=== PATIENT | male | born 1955 | race Caucasian/White ===

== ENCOUNTER 2018-07-01 15:01 | Observation (INO) | payer MEDICARE, BC ==
[2018-07-01 16:21] LABS: ADD MAN DIFF? NO
[2018-07-01 16:22] LABS: WHITE BLOOD COUNT 7.4 10^3/ul (4.8-10.8)
[2018-07-01 16:23] LABS: BASOPHILS % 0.3 % (0.0-2.0); EOSINOPHILS # 0.1 10^3/ul (0.0-0.5); EOSINOPHILS % 1.6 % (0.0-7.0); HEMATOCRIT 37.6 % (42.0-52.0); HEMOGLOBIN 12.4 g/dl (14.0-18.0); LYMPHOCYTES # 2.6 10^3/ul (0.8-2.9); MEAN CORPUSCULAR HEMOGLOBIN 29.3 pg (29.0-33.0); MEAN CORPUSCULAR VOLUME 88.9 fl (82.0-101.0); MEAN PLATELET VOLUME 10.6 fl (7.4-10.4); MONOCYTE # 0.5 10^3/ul (0.3-0.9); NEUTROPHIL # 4.1 10^3/ul (1.6-7.5); PLATELET COUNT 188 10^3/UL (140-415); RED BLOOD COUNT 4.23 10^6/ul (4.70-6.10); RED CELL DISTRIBUTION WIDTH 13.1 % (11.5-14.5)
[2018-07-01] MEDS: NITROGLYCERIN 2% 1 GM OINT PKT TD (16:35)
[2018-07-01] MEDS: ASPIRIN 81 MG TAB PO (16:36)
[2018-07-01 16:42] LABS: ANION GAP 8 (5-13); BLOOD UREA NITROGEN 26 mg/dl (7-20); CALCIUM 9.4 mg/dl (8.4-10.2); CARBON DIOXIDE 24 mmol/L (21-31); CHLORIDE 108 mmol/L (97-110); Estimated GFR 56 mL/min (>60); GLUCOSE 79 mg/dl (70-220); POTASSIUM 4.3 mmol/L (3.5-5.1); SODIUM 140 mmol/L (135-144)
[2018-07-01 16:53] LABS: TROPONIN-I < 0.012 ng/ml (0.000-0.120)
[2018-07-01] MEDS ORDERED: DOCUSATE SODIUM 100 MG CAP PO (18:00)
[2018-07-01] MEDS ORDERED: MAGNESIUM HYDROXIDE 30ML CUP PO (18:00)
[2018-07-01] MEDS ORDERED: morphine 2 MG INJ IV (18:00)
[2018-07-01] MEDS ORDERED: NACL 0.9% 3 ML SYG IV (18:00)
[2018-07-01] MEDS ORDERED: HYDROCODONE/APAP (5/325) TAB PO (18:00)
[2018-07-01] MEDS ORDERED: ONDANSETRON 4 MG INJ IV (18:00)
[2018-07-01] MEDS ORDERED: NITROGLYCERIN (SL) 0.4 MG TAB SL (18:00)
[2018-07-01 18:02] LABS: HEMOGLOBIN A1C 5.4 % (0-5.9)
[2018-07-01] MEDS ORDERED: hydrALAzine 20 MG INJ IV (18:30)
[2018-07-01] MEDS: SOD CHLORIDE 0.9% 1,000 ML IV (20:16)
[2018-07-01] MEDS: ENOXAPARIN 80 MG/0.8 ML SYG SC (20:28)
[2018-07-01] MEDS: ATORVASTATIN 80 MG TAB PO (20:36)
[2018-07-01] MEDS: METOPROLOL 25 MG TAB PO (20:37)
[2018-07-01 22:24] LABS: CREATINE KINASE 200 IU/L (23-200)
[2018-07-01 22:38] LABS: CK INDEX 1.2; CK-MB 2.33 ng/ml (0.0-2.4); TROPONIN-I < 0.012 ng/ml (0.000-0.120)
[2018-07-01] MEDS: NICOTINE (21 MG/24 HR) PATCH TRANSDERM (22:49)
[2018-07-02] MEDS: ACETAMINOPHEN 325 MG TAB PO (01:13)
[2018-07-02] MEDS: PANTOPRAZOLE (EC) 40 MG TAB PO (06:16)
[2018-07-02 06:25] LABS: ADD MAN DIFF? NO
[2018-07-02 06:36] LABS: WHITE BLOOD COUNT 7.7 10^3/ul (4.8-10.8)
[2018-07-02 06:36] LABS: BASOPHILS % 0.4 % (0.0-2.0); EOSINOPHILS # 0.2 10^3/ul (0.0-0.5); EOSINOPHILS % 2.1 % (0.0-7.0); HEMATOCRIT 34.4 % (42.0-52.0); HEMOGLOBIN 11.4 g/dl (14.0-18.0); LYMPHOCYTES # 2.9 10^3/ul (0.8-2.9); LYMPHOCYTES % 37.6 % (15.0-51.0); MEAN CORPUSCULAR HEMOGLOBIN 29.7 pg (29.0-33.0); MEAN CORPUSCULAR HGB CONC 33.1 g/dl (32.0-37.0); MEAN CORPUSCULAR VOLUME 89.6 fl (82.0-101.0); MEAN PLATELET VOLUME 11.6 fl (7.4-10.4); MONOCYTE # 0.6 10^3/ul (0.3-0.9); MONOCYTES % 7.9 % (0.0-11.0); NEUTROPHILS % 51.6 % (39.0-77.0); PLATELET COUNT 171 10^3/UL (140-415); RED BLOOD COUNT 3.84 10^6/ul (4.70-6.10); RED CELL DISTRIBUTION WIDTH 13.2 % (11.5-14.5)
[2018-07-02 07:08] LABS: CREATINE KINASE 151 IU/L (23-200)
[2018-07-02 07:09] LABS: ANION GAP 7 (5-13); BLOOD UREA NITROGEN 24 mg/dl (7-20); CARBON DIOXIDE 24 mmol/L (21-31); CHLORIDE 109 mmol/L (97-110); CHOL/HDL RATIO 5.8 RATIO; CHOLESTEROL 188 mg/dl (100-200); CREATININE 1.33 mg/dl (0.61-1.24); Estimated GFR 54 mL/min (>60); GLUCOSE 89 mg/dl (70-220); HDL CHOLESTEROL 32 mg/dl (30-78); LDL CHOLESTEROL,CALCULATED 57 mg/dl; POTASSIUM 4.4 mmol/L (3.5-5.1); SODIUM 140 mmol/L (135-144); TRIGLYCERIDES 496 mg/dl (0-149)
[2018-07-02 07:21] LABS: CK INDEX 1.1; CK-MB 1.67 ng/ml (0.0-2.4); TROPONIN-I < 0.012 ng/ml (0.000-0.120)
[2018-07-02] MEDS: REGADENOSON 0.4 MG/5 ML SYG (11:20)
[2018-07-02] MEDS: ASPIRIN 81 MG TAB PO (12:48)
[2018-07-02] MEDS: NICOTINE (21 MG/24 HR) PATCH TRANSDERM (12:48)
[2018-07-02] MEDS: METOPROLOL 25 MG TAB PO (12:49)
[2018-07-02] MEDS: ENOXAPARIN 80 MG/0.8 ML SYG SC (12:52)
[2018-07-02] MEDS: LOSARTAN 50 MG TAB PO (13:00)
[2018-07-03] MEDS ORDERED: INFLUENZA VIRUS VACCINE 0.5 ML (DISPENSING) IM* (10:00)
== END 2018-07-02 17:05 | disposition home or self-care (01) ==
LOC: E/R 15:01 → TEL 17:14
DX: I25.10 Atherosclerotic heart disease of native coronary artery without angina pectoris (principal); Z95.5 Presence of coronary angioplasty implant and graft; I10 Essential (primary) hypertension; E78.5 Hyperlipidemia, unspecified; Z72.0 Tobacco use; R91.8 Other nonspecific abnormal finding of lung field; N17.9 Acute kidney failure, unspecified; Z79.82 Long term (current) use of aspirin
CPT/HCPCS: 36415; 71045; 71250; 78452; 80048; 80061; 82550; 82553; 83036; 83735; 84484; 85025; 93005; 93017; 93306; 93971; 99285-25; G0378

== ENCOUNTER 2018-07-21 16:39 | Emergency (ER) | payer MEDICARE, BC ==
[2018-07-21] MEDS: DIPHTH/TET/ACEL PERTUSS (ADULT) 0.5 ML VIAL IM* (17:37)
[2018-07-21] MEDS: HYDROCODONE/APAP (5/325) TAB PO (17:37)
== END 2018-07-21 19:15 | disposition home or self-care (01) ==
LOC: FTE 16:39
DX: S61.315A Laceration without foreign body of left ring finger with damage to nail, initial encounter (principal); I10 Essential (primary) hypertension; I25.10 Atherosclerotic heart disease of native coronary artery without angina pectoris; I25.2 Old myocardial infarction; W26.8XXA Contact with other sharp object(s), not elsewhere classified, initial encounter; Y92.9 Unspecified place or not applicable; Z23 Encounter for immunization; Z79.82 Long term (current) use of aspirin; Z98.61 Coronary angioplasty status; Z87.891 Personal history of nicotine dependence
CPT/HCPCS: 12001; 90471; 90715; 99283-25

== ENCOUNTER 2018-07-26 09:19 | Emergency (ER) | payer MEDICARE, BC | END 2018-07-26 13:29 | disposition home or self-care (01) | LOC: FTE 09:19 | DX: Z48.01 Encounter for change or removal of surgical wound dressing (principal); I10 Essential (primary) hypertension; I25.10 Atherosclerotic heart disease of native coronary artery without angina pectoris; Z79.82 Long term (current) use of aspirin; Z87.891 Personal history of nicotine dependence; Z98.61 Coronary angioplasty status | CPT/HCPCS: 99281 ==